=== PATIENT | female | born 2005 | race Caucasian/White ===

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

== ENCOUNTER 2023-04-17 13:42 | Emergency (ER) | payer OTHER, SELFPAY ==
--- NOTE | 2023-04-17 13:56 | ED.FEMALEGU ---
HPI - Female Genitourinary General Chief complaint: Urogenital-Female Stated complaint: urinary issue Time Seen by Provider: 04/17/23 14:13 Source: patient and RN notes reviewed Mode of arrival: ambulatory Limitations: no limitations History of Present Illness HPI Narrative: 18-year-old female presents with concern for malodorous urine, urine frequency, urgency, dysuria that started today. She denies fever, abdominal pain, back pain, chills, nausea. MD elicited complaint: UTI Related Data Allergies Allergy/AdvReac Type Severity Reaction Status Date / Time No Known Allergies Allergy Mild Verified 04/17/23 14:06 Review of Systems Review of Systems: CONSTITUTIONAL: Denies malaise, chills, sweats, or fever. CARDIOVASCULAR: Denies chest pain, palpitations, or edema. RESPIRATORY: Denies cough or dyspnea. GASTROINTESTINAL: Denies abdominal pain, nausea, vomiting, diarrhea GENITOURINARY: Reports dysuria, frequency, urgency, malodorous urine. Denies flank pain or hematuria. SKIN: Denies rash or itching. MUSCULOSKELETAL: Denies back pain or myalgia. All systems reviewed & are unremarkable except as noted in HPI and below PMFSH Comments At time of signature, agree with nursing past medical, surgical, social and family history. There is no relevant family history pertinent to the presenting complaint Exam Narrative: GENERAL: Well-appearing, well-nourished, and in no acute distress. HEAD: Normocephalic. EYES: PERRLA, conjunctivae clear. NECK: Supple. No lymphadenopathy CHEST: Clear to auscultation. No respiratory distress. HEART: Regular rate and rhythm. ABDOMEN: Soft, nontender upon palpation, nondistended, normal active bowel sounds, no palpable or pulsatile masses, no guarding. No CVA tenderness SKIN: Warm, dry, no rash. NEURO: Alert and oriented x3. PSYCH: Normal mood and affect Course Course Emergency Course: Patient is aware of diagnosis, understands and agrees to treatment plan. Anticipatory guidance given. Patient agrees to follow-up as directed and is aware of reasons to seek care at the emergency department. Portions of this record may have been created with voice recognition software Level of Care: Express Care Visit Vital Signs Vital signs: Reviewed. MDM - Female Genitourinary MDM Narrative Medical decision making narrative: Exam findings and UA show no acute concerns or changes; patient is non-toxic appearing and is in no distress. Patient is appropriate for outpatient treatment and follow-up. Differential Diagnosis Differential diagnosis: Likely urinary tract infection and cystitis Critical Care Time Critical Care Time Critical Care Time: No Discharge Plan Discharge Clinical Impression: Urinary tract infection Patient Disposition: Home, Self-Care Condition: Stable Instructions: Antibiotic Form, Urinary Tract Infection in Women (ED) Additional Instructions: We will send a urine culture to the lab; if the culture identifies an organism that the prescribed antibiotic will not treat, you will receive a phone call from an urgent care staff member and an appropriate antibiotic will be prescribed. -Your symptoms should begin to improve within a day of starting antibiotics. But you should finish all the antibiotic pills you get. Otherwise your infection might come back. -Also recommend: increase water intake. Tylenol/ibuprofen as needed for pain or fever -Follow-up with your primary care provider for urine recheck or seek ER visit if condition worsens with high fever, nausea, vomiting and severe back pain. Prescriptions: New sulfamethoxazole-trimethoprim 800-160 mg tablet 1 tablet PO Q12H 5 Days Qty: 10 0RF Follow-up/Referrals: PHYSICIAN,LEAD RAMP AGENT [Primary Care Provider] - Stand Alone Forms: Work/School Release IP Time of Disposition: 14:25
[2023-04-17 14:04] VITALS: BP 128/78; PULSE 84; RESP 16; TEMP 37.2; O2SAT 99
[2023-04-17 14:08] VITALS: BP 128/78; PULSE 84; RESP 16; TEMP 37.2; O2SAT 99
== END 2023-04-17 14:33 | disposition home or self-care (01) ==
PROVIDERS: Emergency Provider Nurse Practitioner
DX: N39.0 Urinary tract infection, site not specified (principal); B96.20 Unspecified Escherichia coli [E. coli] as the cause of diseases classified elsewhere
CPT/HCPCS: 81003; 81025; 87077; 87086; 87186; 99213; G0463

== ENCOUNTER 2024-01-23 06:31 | Emergency (ER) | payer OTHER, SELFPAY ==
[2024-01-23 06:50] VITALS: BP 119/83; PULSE 68; RESP 18; TEMP 36.6; O2SAT 100
--- NOTE | 2024-01-23 07:34 | ED.GENADULT ---
HPI - General Adult General Chief complaint: Ear Stated complaint: earache Time Seen by Provider: 01/23/24 07:00 History of Present Illness HPI narrative: This is a 18-year-old female presenting with several days of ear pain. Patient has pain when she tugs on her ear or uses ear swabs. No loss of hearing. No fevers or congestion. Patient frequently has ear pain. Related Data Allergies Allergy/AdvReac Type Severity Reaction Status Date / Time No Known Allergies Allergy Mild Verified 01/23/24 06:54 Exam Narrative: APPEARANCE: No apparent distress. Head: Pain with traction on the tragus the left ear. The the external ear canal is swollen and tender. Tympanic membranes normal bilaterally. EYES: EOMI, NOSE: Atraumatic NECK: Trachea midline RESPIRATORY: No increased rate of breathing CARDIOVASCULAR: RRR, ABDOMINAL: Non-distended MUSCULOSKELETAl: No obvious deformities NEURO: Alert. Moving 4/4 extremities SKIN:: Warm, dry. Normal color PSYCHIATRIC: Normal affect Course Vital Signs Vital signs: Vital Signs Temperature 97.8 F 01/23/24 06:50 Pulse Rate 68 01/23/24 06:50 Respiratory Rate 18 01/23/24 06:50 Blood Pressure 119/83 01/23/24 06:50 Pulse Oximetry 100 01/23/24 06:50 Oxygen Delivery Room Air 01/23/24 06:50 Temperature 97.8 F 01/23/24 06:50 Pulse Rate 68 01/23/24 06:50 Respiratory Rate 18 01/23/24 06:50 Blood Pressure 119/83 01/23/24 06:50 Pulse Oximetry 100 01/23/24 06:50 Oxygen Delivery Room Air 01/23/24 06:50 Medical Decision Making [facility] Narrative Medical decision making narrative: -Course: 18-year-old presenting with left ear pain. Findings consistent with otitis externa. Treated with Ciprodex ear drops. Given ENT follow-up or ED follow-up and return precautions. -DDX includes but is not limited to: Otitis externa, otitis media -Shared decision making / Disposition: Discharged -RX Ciprodex Vital Signs Vital Signs: Vital Signs Temperature 97.8 F 01/23/24 06:50 Pulse Rate 68 01/23/24 06:50 Respiratory Rate 18 01/23/24 06:50 Blood Pressure 119/83 01/23/24 06:50 Pulse Oximetry 100 01/23/24 06:50 Oxygen Delivery Room Air 01/23/24 06:50 Temperature 97.8 F 01/23/24 06:50 Pulse Rate 68 01/23/24 06:50 Respiratory Rate 18 01/23/24 06:50 Blood Pressure 119/83 01/23/24 06:50 Pulse Oximetry 100 01/23/24 06:50 Oxygen Delivery Room Air 01/23/24 06:50 Discharge Plan Discharge Clinical Impression: Otitis externa Patient Disposition: Home, Self-Care Condition: Stable Instructions: Antibiotic Form, Jens's Ear (ED) Additional Instructions: Please use the ear drops as directed. He can use Motrin and Tylenol for pain control. Return the ED if you develop severe ear pain, increased redness or if her condition is getting worse Prescriptions: New ciprofloxacin-dexamethasone 0.3-0.1 % drops,suspension 4 drp LEFT EAR Q12H 7 Days Qty: 7.5 0RF No Action sulfamethoxazole-trimethoprim 800-160 mg tablet 1 tablet PO Q12H 5 Days Qty: 10 0RF Follow-up/Referrals: PHYSICIAN,COMPLIANCE INTERN [Primary Care Provider] -
== END 2024-01-23 07:45 | disposition home or self-care (01) ==
LOC: ANHED 07:38
PROVIDERS: Emergency Provider Emergency Medicine
DX: H60.92 Unspecified otitis externa, left ear (principal)
CPT/HCPCS: 99283